=== PATIENT | female | born 1985 | race Caucasian/White ===

== ENCOUNTER 2016-09-29 14:35 | Emergency (ER) | payer OTHER ==
[2016-09-29] MEDS ORDERED: MIRENA1 EACH IY (14:46)
[2016-09-29] MEDS ORDERED: SINGULAIR10 M1 PO (14:46)
[2016-09-29] MEDS ORDERED: VENTOLIN HFA18 G2 PO (14:46)
[2016-09-29] MEDS ORDERED: AZELASTINE137 MCG/01 (14:47)
[2016-09-29] MEDS ORDERED: PULMICORT0.5 MG/22 INH (14:47)
[2016-09-29 16:02] LABS: BASO % 0.6 % (0-2); EOS % 0.4 % (0-7); HCT-HEMATOCRIT 40.1 % (34.0-49.0); HGB-HEMOGLOBIN 13.2 gm/dl (12.0-15.5); IMMATURE GRANULOCYTES ABSOLUTE 0.02 tho/cmm (0-0.03); IMMATURE GRANULOCYTES PERCENT 0.3 % (0-0.3); LYMPH % 18.8 % (20-45); LYMPH ABSOLUTE COUNT 1.4 tho/cmm (0.8-4.5); MCH (MEAN CORPUSCULAR HGB) 29.9 pg (28.0-32.0); MCHC MEAN CORPUSCULAR HGB CONC 32.9 % (32.0-36.0); MCV (MEAN CELL VOLUME) 90.9 fl (82.0-96.0); MEAN PLATELET VOLUME 10.6 cmc (9.4-12.4); MONO % 7.4 % (0-12); MONOCYTE ABSOLUTE COUNT 0.5 tho/cmm (0.0-1.2); NEUTROPHIL ABSOLUTE COUNT 5.2 tho/cmm (1.6-8.0); NEUTROPHIL-AUTOMATED 5.2 tho/cmm (1.6-8.0); NEUTROPHILS % 72.5 % (40-80); PLATELET COUNT 207 tho/cmm (150-450); RED BLOOD COUNT 4.41 mil/cmm (4.00-5.20); RED CELL DISTRIBUTION WIDTH 12.9 % (12.4-16.4); WHITE BLOOD COUNT 7.2 tho/cmm (4.0-10.0)
[2016-09-29 16:14] LABS: ANION GAP 11 mmol/L (0-20); BLOOD UREA NITROGEN 11 mg/dl (6-24); CALCIUM 8.7 mg/dl (8.5-10.5); CARBON DIOXIDE-VENOUS 27 mmol/L (22-32); CHLORIDE 107 mmol/l (96-110); CREATININE 1.09 mg/dl (0.50-1.10); GLUCOSE 168 mg/dL (70-110); POTASSIUM 3.6 mmol/L (3.7-5.1); SODIUM 141 mmol/L (135-145); eGFR VALUE FOR BLACK 77 mL/Min
== END 2016-09-29 17:19 ==
LOC: EDMED 14:35
PROVIDERS: Emergency Medicine
DX: R00.2 Palpitations (principal); T48.6X5A Adverse effect of antiasthmatics, initial encounter; Y92.9 Unspecified place or not applicable; J45.909 Unspecified asthma, uncomplicated
CPT/HCPCS: J7030; Q9967